=== PATIENT | male | born 1975 | race Caucasian/White ===

== ENCOUNTER 2017-02-22 13:50 | Emergency (ER) | payer SELFPAY ==
[~2017-02-22 13:50] MED LIST: AMOXICILLIN PO; AUGMENTIN PO; BACTRIM DS TABL1 TA1 PO; BACTROBAN22 GM TP; CIPRO PO; DAKIN'S MODIF1000 ML TOP; DOXYCYCLINE HY100 M1 PO; ERYTHROMYCIN O3.5 GM OD; FLEXERIL10 M1 PO; FLEXERIL10 MG PO; FLOMAX0.4 M1 PO; GRIFULVIN V500 MG PO; GUAIFENESIN400 MG PO; KEFLEX PO; KETOPROFEN PO; LORTAB 101 TAB 10/5 PO; LORTAB 5/500 TA1 TA1 PO; LOTRISONE CREAM45 GM TOP; LOTRISONE LOTIO30 ML TOP; MEDROL4 MG/DOSE- PO; NAPROSYN375 MG PO; NO MEDICATIONS; NORCO 5/325 TAB1 TAB; PEN-VEE K PO; PERCOCET5/325 PO; POLYTRIM EYE DR10 ML OP; SKELAXIN PO; TRAMADOL HCL50 M1 PO; TYLOX1 CAP 5/50 PO; ULTRAM PO; VIBRAMYCIN100 M1 PO; VICODIN 5/1 TAB 5/50 PO; VICODIN 5/500 T1 TAB PO; VICODIN PO; VOLTAREN75 MG PO; ZYVOX600 MG PO
== END 2017-02-22 14:00 | disposition home or self-care (01) ==
LOC: CFTX 13:50
DX: K02.9 Dental caries, unspecified (principal); I10 Essential (primary) hypertension; F17.210 Nicotine dependence, cigarettes, uncomplicated; Z87.442 Personal history of urinary calculi; Z86.14 Personal history of Methicillin resistant Staphylococcus aureus infection
CPT/HCPCS: 99282